=== PATIENT | male | born 1965 | race Caucasian/White ===

== ENCOUNTER 2016-06-27 20:38 | Emergency (ER) | payer OTHER ==
[2016-06-27 21:06] VITALS: BP 140/81; PULSE 85; RESP 20; TEMP 98.9
--- NOTE | 2016-06-27 21:49 | ED ---
Back Pain HPI - General Chief Complaint: Back Pain/Injury Stated Complaint: chronic lower back pain Time Seen by Provider: 06/27/16 21:33 Source: patient Limitations: no limitations - History of Present Illness Initial Comments: Patient is a 51-year-old male presenting to the emergency department with complaints of chronic low back pain. Patient states he has had chronic low back pain since 2001 and has been seen by pain specialist in the past, who is no longer available. Patient states he has insurance problems and is unable to see a pain specialist until he gets a referral from his primary care physician. Patient states he has an appointment to see his primary care physician next week. Patient complains of lower back pain currently rated 8 out of 10. Patient states his pain is exacerbated with walking. Patient states that he just moved into apartment where he has to walk 2 flights of stairs every day. Denies fevers, chills, nausea, vomiting, shortness of breath , chest pain, or abdominal pain. Denies numbness or tingling. Denies radiation. Denies urinary or fecal incontinence. Denies saddle anesthesia. Patient declines imaging at this point. MD Complaint: back pain Similar Symptoms Previously: Yes - Related Data Previous Rx's Medication Instructions Recorded Acetaminophen-Codeine 300-30mg 1 tab PO Q6H PRN #20 tablet 06/27/16 [Tylenol #3] Allergies Allergy/AdvReac Type Severity Reaction Status Date / Time gabapentin [From Neurontin] Allergy Unknown Verified 06/27/16 21:06 Review of Systems ROS Statement: Those systems with pertinent positive or pertinent negative responses have been documented in the HPI. ROS Other: All systems not noted in ROS Statement are negative. Past Medical History Past Medical History: Asthma, COPD Additional Past Medical History / Comment(s): back pain, heredity degenerative disc disorder History of Any Multi-Drug Resistant Organisms: None Reported Past Surgical History: Hernia Repair, Orthopedic Surgery Past Psychological History: ADD/ADHD, Anxiety, Bipolar Smoking Status: Current every day smoker Past Alcohol Use History: None Reported Past Drug Use History: None Reported General Exam Limitations: no limitations General appearance: alert, in no apparent distress Head exam: Present: atraumatic, normocephalic, normal inspection Eye exam: Present: normal appearance, PERRL, EOMI. Absent: scleral icterus, conjunctival injection, periorbital swelling ENT exam: Present: normal exam, mucous membranes moist Neck exam: Present: normal inspection, full ROM. Absent: tenderness, meningismus, lymphadenopathy Respiratory exam: Present: normal lung sounds bilaterally. Absent: respiratory distress, wheezes, rales, rhonchi, stridor Cardiovascular Exam: Present: regular rate, normal rhythm, normal heart sounds. Absent: systolic murmur, diastolic murmur, rubs, gallop, clicks GI/Abdominal exam: Present: soft, normal bowel sounds. Absent: distended, tenderness, guarding, rebound, rigid Extremities exam: Present: normal inspection, full ROM, normal capillary refill. Absent: tenderness, pedal edema, joint swelling, calf tenderness Back exam: Present: normal inspection, full ROM, vertebral tenderness. Absent: CVA tenderness (R), CVA tenderness (L), muscle spasm, paraspinal tenderness Expanded Back exam: Absent: saddle anesthesia Back exam: Negative Straight Leg Raising: Left, Right Neurological exam: Present: alert, oriented X3, CN II-XII intact, normal gait. Absent: motor sensory deficit, reflexes normal Psychiatric exam: Present: normal affect, normal mood Skin exam: Present: warm, dry, intact, normal color. Absent: rash Course Vital Signs 06/27/16 21:05 Temperature 98.9 F Pulse Rate 85 Respiratory 20 Rate Blood Pressure 140/81 O2 Sat by Pulse 98 Oximetry Medical Decision Making - Medical Decision Making Chronic lumbar back pain. Patient given prescription for Tylenol 3 and instructed to follow-up with primary care physician to establish a pain specialist. Patient agrees with plan of care. Return parameters and discharge instructions reviewed. Disposition Clinical Impression: Chronic low back pain without sciatica Disposition: HOME SELF-CARE Condition: Good Instructions: Chronic Back Pain (ED) Additional Instructions: Follow-up with primary care physician as directed. Please return to the emergency department if symptoms do not improve or get worse. Prescriptions: Acetaminophen-Codeine 300-30mg [Tylenol #3] 1 tab PO Q6H PRN #20 tablet PRN Reason: Pain Referrals: Isabella Herrera MD [Primary Care Provider] - 1-2 days Time of Disposition: 21:48
== END 2016-06-27 22:11 | disposition home or self-care (01) ==
LOC: EC 20:38
DX: G89.29 Other chronic pain (principal); M54.5 Low back pain; F17.200 Nicotine dependence, unspecified, uncomplicated
CPT/HCPCS: 99283

== ENCOUNTER 2016-07-24 23:00 | Emergency (ER) | payer OTHER ==
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
[2016-07-25 00:37] VITALS: BP 143/76; PULSE 90; RESP 20; TEMP 97
== END 2016-07-25 00:37 | disposition home or self-care (01) ==
LOC: EC 23:00
DX: S00.83XA Contusion of other part of head, initial encounter (principal); W22.03XA Walked into furniture, initial encounter; J32.9 Chronic sinusitis, unspecified; F17.200 Nicotine dependence, unspecified, uncomplicated; Z88.8 Allergy status to other drugs, medicaments and biological substances
CPT/HCPCS: 70486; 99283

== ENCOUNTER 2016-09-21 15:00 | Emergency (ER) | payer OTHER ==
[2016-09-21 15:16] VITALS: BP 134/60; PULSE 72; RESP 16; TEMP 98.8
--- NOTE | 2016-09-21 15:30 | ED ---
General Adult HPI - General Chief complaint: Back Pain/Injury Stated complaint: Back Pain Time Seen by Provider: 09/21/16 15:18 Source: patient, RN notes reviewed, old records reviewed Mode of arrival: ambulatory Limitations: no limitations - History of Present Illness Initial comments: Patient 51-year-old male with significant past history of chronic low back pain , who presents emergency room today with chief complaint of increased lower back pain after lifting a TV earlier today. Denies any significant injury at the time. States it has flared up since having increased pain in her lower back greater on the right side. Denies any lumbar radiculopathy. Denies any saddle anesthesia. Denies any bowel or bladder incontinence or retention. Patient denies any other complaints or associated symptoms. Patient denies any recent fever, chills, shortness of breath, chest pain, abdominal pain, nausea or vomiting, numbness or tingling, dysuria or hematuria, constipation or diarrhea, headaches or visual changes, or any other complaints. - Related Data Previous Rx's Medication Instructions Recorded Acetaminophen-Codeine 300-30mg 1 each PO Q6H PRN #20 tablet 09/21/16 [Tylenol #3] Cyclobenzaprine [Flexeril] 10 mg PO TID #20 tab 09/21/16 Allergies Allergy/AdvReac Type Severity Reaction Status Date / Time gabapentin [From Neurontin] Allergy Unknown Verified 09/21/16 15:16 Review of Systems ROS Statement: Those systems with pertinent positive or pertinent negative responses have been documented in the HPI. ROS Other: All systems not noted in ROS Statement are negative. Past Medical History Past Medical History: Asthma, COPD Additional Past Medical History / Comment(s): back pain, heredity degenerative disc disorder History of Any Multi-Drug Resistant Organisms: None Reported Past Surgical History: Hernia Repair, Orthopedic Surgery Past Psychological History: ADD/ADHD, Anxiety, Bipolar Smoking Status: Current every day smoker Past Alcohol Use History: None Reported Past Drug Use History: None Reported General Exam - General Exam Comments Initial Comments: General: The patient is awake and alert, in no distress, and does not appear acutely ill. Eye: Pupils are equal, round and reactive to light, extra-ocular movements are intact. No nystagmus. There is normal conjunctiva bilaterally. No signs of icterus. Ears, nose, mouth and throat: There are moist mucous membranes and no oral lesions. Neck: The neck is supple, there is no tenderness or JVD. Cardiovascular: There is a regular rate and rhythm. No murmur, rub or gallop is appreciated. Respiratory: Lungs are clear to auscultation, respirations are non-labored, breath sounds are equal. No wheezes, stridor, rales, or rhonchi Musculoskeletal: Normal ROM, no tenderness. Strength 5/5. Sensation intact. Pulses equal bilaterally 2+. Neurological: A&O x 3. CN II-XII intact, There are no obvious motor or sensory deficits. Coordination appears grossly intact. Speech is normal. Skin: Skin is warm and dry and no rashes or lesions are noted. Psychiatric: Cooperative, appropriate mood & affect, normal judgment. Limitations: no limitations Course Vital Signs 09/21/16 15:14 Temperature 98.8 F Pulse Rate 72 Respiratory 16 Rate Blood Pressure 134/60 O2 Sat by Pulse 98 Oximetry Medical Decision Making - Medical Decision Making [employer] automated prescription system check was performed showing patient has not received any recent narcotics. Will be given short prescription of Tylenol with codeine along with Flexeril for his symptoms. Advised follow-up the family doctor. Advised return for any other concerns. Disposition Clinical Impression: Acute exacerbation of chronic low back pain Disposition: HOME SELF-CARE Condition: Good Instructions: Chronic Back Pain (ED) Additional Instructions: Please use medication as discussed. Please follow-up with family doctor in the next 2 days of symptoms have not improved. Please return to emergency room if the symptoms increase or worsen or for any other concerns. Prescriptions: Acetaminophen-Codeine 300-30mg [Tylenol #3] 1 each PO Q6H PRN #20 tablet PRN Reason: Pain Cyclobenzaprine [Flexeril] 10 mg PO TID #20 tab Time of Disposition: 15:29
== END 2016-09-21 15:30 | disposition home or self-care (01) ==
LOC: EC 15:00
DX: M54.5 Low back pain (principal); G89.29 Other chronic pain; Z88.8 Allergy status to other drugs, medicaments and biological substances; F17.200 Nicotine dependence, unspecified, uncomplicated; X50.9XXA Other and unspecified overexertion or strenuous movements or postures, initial encounter; Y93.89 Activity, other specified
CPT/HCPCS: 99283

== ENCOUNTER 2016-10-26 15:41 | Emergency (ER) | payer OTHER ==
[2016-10-26 15:55] VITALS: BP 143/81; PULSE 108; RESP 18; TEMP 99
--- NOTE | 2016-10-26 16:14 | ED ---
Back Pain HPI - General Chief Complaint: Back Pain/Injury Stated Complaint: back pain Time Seen by Provider: 10/26/16 15:56 Source: patient, RN notes reviewed Limitations: no limitations - History of Present Illness Initial Comments: Patient is a 51-year-old male to the emergency room for evaluation of acute on chronic low back pain. Patient states he's had chronic low back pain since 1999. Patient denies any certain injury or trauma to his back. Patient states it just began bothering him many years ago and has not subsided since. Patient states he used to see Dr. Augustine for pain management. Patient states he used to take [place] and Valium for pain. 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 Patient states he is going to follow-up with the primary care provider in the next few weeks. Patient states he has not been taking anything for pain at home. Patient states ibuprofen gives him heartburn. Patient denies trying Tylenol. Patient states the pain is worse when he moves. Patient denies any numbness or tingling going down his legs. Patient denies saddle anesthesia. Patient denies urinary or fecal incontinence. Patient denies recent fall or trauma to his back. Patient just states his back is been bothering him more over the past 2 days. - Related Data Previous Rx's Medication Instructions Recorded Acetaminophen-Codeine 300-30mg 1 each PO Q6H PRN #20 tablet 09/21/16 [Tylenol #3] Cyclobenzaprine [Flexeril] 10 mg PO TID #20 tab 09/21/16 Acetaminophen with Codeine 1 tab PO Q4H PRN #12 tab 10/26/16 [Tylenol w/codeine #3] Allergies Allergy/AdvReac Type Severity Reaction Status Date / Time gabapentin [From Neurontin] Allergy Unknown Verified 10/26/16 15:55 Review of Systems ROS Statement: Those systems with pertinent positive or pertinent negative responses have been documented in the HPI. ROS Other: All systems not noted in ROS Statement are negative. Past Medical History Past Medical History: Asthma, COPD Additional Past Medical History / Comment(s): back pain, heredity degenerative disc disorder History of Any Multi-Drug Resistant Organisms: None Reported Past Surgical History: Hernia Repair, Orthopedic Surgery Past Psychological History: ADD/ADHD, Anxiety, Bipolar Smoking Status: Current every day smoker Past Alcohol Use History: None Reported Past Drug Use History: None Reported General Exam - General Exam Comments Initial Comments: Sitting on exam bed, no acute distress. Limitations: no limitations General appearance: alert, in no apparent distress Head exam: Present: atraumatic, normocephalic, normal inspection Eye exam: Present: normal appearance ENT exam: Present: normal exam Neck exam: Present: normal inspection Respiratory exam: Absent: respiratory distress Extremities exam: Present: normal inspection, normal capillary refill Back exam: Present: normal inspection, full ROM, paraspinal tenderness ( bilateral lumbosacral spine tenderness) Neurological exam: Present: alert, oriented X3, CN II-XII intact, normal gait Psychiatric exam: Present: normal affect, normal mood Skin exam: Present: warm, dry, intact, normal color. Absent: rash Course Vital Signs 10/26/16 15:54 Temperature 99.0 F Pulse Rate 108 H Respiratory 18 Rate Blood Pressure 143/81 O2 Sat by Pulse 95 Oximetry Medical Decision Making - Medical Decision Making Patient is a 51-year-old male presents emergency room for evaluation of acute on chronic low back pain. Patient denies any recent fall or trauma. Will send patient home with Tylenol 3 and advised to follow-up with primary care provider. Patient states he understands everything that was discussed with him. Return parameters discussed. Disposition Clinical Impression: Acute exacerbation of chronic low back pain Disposition: HOME SELF-CARE Condition: Good Instructions: Chronic Back Pain (ED) Additional Instructions: Take medications as needed. Please follow-up with primary care provider for further evaluation/pain management. If any new symptom arises or symptoms worsen , return to ER as soon as possible. Prescriptions: Acetaminophen with Codeine [Tylenol w/codeine #3] 1 tab PO Q4H PRN #12 tab PRN Reason: Pain Referrals: None,Stated [Primary Care Provider] - 1-2 days Time of Disposition: 16:12
== END 2016-10-26 16:18 | disposition home or self-care (01) ==
LOC: EC 15:41
DX: G89.29 Other chronic pain (principal); M54.5 Low back pain; F17.200 Nicotine dependence, unspecified, uncomplicated; Z88.8 Allergy status to other drugs, medicaments and biological substances
CPT/HCPCS: 99283

== ENCOUNTER → 2016-12-11 | Outpatient (CLI) | payer BC ==
--- NOTE | 2016-12-11 10:29 | XR ---
EXAMINATION TYPE: XR lumbar spine 2 or 3V , 3 VIEWS DATE OF EXAM ORDERED: 12/11/2016 HISTORY: M51.36 Intervertebral disc degeneration, lumbar region. COMPARISON: None. FINDINGS: Vertebral body height and alignment are maintained. There is no spondylolysis or spondylol isthesis. The disc spaces are maintained. The pedicles are intact. IMPRESSION: NORMAL LUMBAR SPINE.
--- NOTE | 2016-12-11 10:29 | XR ---
EXAMINATION TYPE: XR chest 2V DATE OF EXAM: 12/11/2016 HISTORY: F17.200 Nicotine dependence. REFERENCE: Previous study dated 11/04/2015. FINDINGS: The lungs are clear. Pleural space are clear. The heart is not enlarged. IMPRESSION: NORMAL CHEST.
== END | disposition home or self-care (01) ==
LOC: RADXRMAIN 10:04
PROVIDERS: ATTEND Family Medicine
DX: M51.36 Other intervertebral disc degeneration, lumbar region (principal); F17.200 Nicotine dependence, unspecified, uncomplicated
CPT/HCPCS: 71020; 72100

== ENCOUNTER → 2016-12-26 | Outpatient (CLI) | payer BC ==
--- NOTE | 2016-12-27 09:40 | MR ---
EXAMINATION TYPE: MR lumbar spine wo con DATE OF EXAM: 12/26/2016 2:58 PM COMPARISON: NONE HISTORY: Lower chronic back pain x 10 years Multiplanar, MultiSpin echo imaging of the lumbar spine was performed. L1-L2: Normal disc appearance without desiccation. No herniation, protrusion or disc bulging. No ca nal stenosis is present. Foramina are patent bilaterally. L2-L3: Normal disc appearance without desiccation. No herniation, protrusion or disc bulging. No ca nal stenosis is present. Foramina are patent bilaterally. L3-L4: Normal disc appearance without desiccation. No herniation, protrusion or disc bulging. No ca nal stenosis is present. Foramina are patent bilaterally. L4-L5: Mild Disc desiccation. Posterocentral disc protrusion with mild effacement ventral thecal sac. No evidence for central stenosis. Mild bilateral foraminal encroachment. L5-S1: Mild disc desiccation. Right paracentral disc bulge with annular tear. No evidence for central stenosis or alan herniation. Facet joint arthropathy without significant foraminal encroachment. Lumbar segments are intact. No paraspinal masses are identified. Conus medullaris has a normal appe arance. IMPRESSION: 1. Mild disc desiccation at L4-5 and L5-S1. 2. Posterocentral disc protrusion at L4-5 with mild effacement ventral thecal sac. 3. Right paracentral disc bulge and annular tear at L5-S1.
== END | disposition home or self-care (01) ==
LOC: RADMRIMAIN 13:59
PROVIDERS: ATTEND Physician Assistant
DX: M51.26 Other intervertebral disc displacement, lumbar region (principal); M51.37 Other intervertebral disc degeneration, lumbosacral region; S34.105A Unspecified injury to L5 level of lumbar spinal cord, initial encounter
CPT/HCPCS: 72148

== ENCOUNTER 2018-09-01 17:33 | Emergency (ER) | payer BC ==
[2018-09-01 17:48] VITALS: RESP 18
[2018-09-01] MEDS ORDERED: ALBUTEROL NEBULIZED 2.5 MG/3 ML INHALATION STA (17:49)
[2018-09-01] MEDS ORDERED: SODIUM CHLORIDE 0.9% 1,000 ML IV STA ×2 (17:49)
[2018-09-01] MEDS ORDERED: IPRATROPIUM 0.5 MG/2.5 ML NEBU INHALATION STA (17:49)
[2018-09-01] MEDS ORDERED: methylPREDNISolone SOD SUCCI 125 MG/2 ML VIAL IV STA (17:49)
--- NOTE | 2018-09-01 17:53 | ED ---
URI HPI - General Chief Complaint: Upper Respiratory Infection Stated Complaint: Poss flu Time Seen by Provider: 09/01/18 17:46 Source: patient, RN notes reviewed, old records reviewed Mode of arrival: ambulatory Limitations: no limitations - History of Present Illness Initial Comments: This is a 53-year-old male the ER for evaluation. They presents for evaluation regarding cough congestion shortness of breath. Occasional rib pain with cough. History of asthma history of smoking. No fevers no travel history no sick contacts. Symptoms are not for 2 weeks, persistent. No prior hospitalizations for breathing issues MD Complaint: fever, cough -: week(s) Severity: moderate Severity scale (1-10): 5 Quality: aching Consistency: constant Improves With: nothing Worsens With: nothing Associated Symptoms: fever, chills, chest pain, shortness of breath Treatments Prior to Arrival: none - Related Data Home Medications Medication Instructions Recorded Confirmed Atorvastatin [Lipitor] 40 mg PO DAILY 09/01/18 09/01/18 HYDROcodone/APAP 10-325MG [[place] 1 tab PO QID PRN 09/01/18 09/01/18 10-325] QUEtiapine [SEROquel] 50 mg PO BID 09/01/18 09/01/18 Venlafaxine HCl ER [Effexor Xr] 75 mg PO DAILY 09/01/18 09/01/18 Previous Rx's Medication Instructions Recorded Albuterol Sulfate [Proair Hfa] 1 - 2 puff INHALATION Q4H PRN #1 09/01/18 inhaler Azithromycin [Zithromax Z-pack] 0 mg PO DIRECTED #1 pack 09/01/18 Naproxen [Naprosyn] 500 mg PO Q12HR PRN #30 tab 09/01/18 predniSONE 50 mg PO DAILY #5 tab 09/01/18 Allergies Allergy/AdvReac Type Severity Reaction Status Date / Time gabapentin [From Neurontin] Allergy Unknown Verified 09/01/18 18:18 Review of Systems ROS Statement: Those systems with pertinent positive or pertinent negative responses have been documented in the HPI. ROS Other: All systems not noted in ROS Statement are negative. Past Medical History Past Medical History: Asthma, COPD Additional Past Medical History / Comment(s): back pain, heredity degenerative disc disorder History of Any Multi-Drug Resistant Organisms: None Reported Past Surgical History: Hernia Repair, Orthopedic Surgery Past Psychological History: ADD/ADHD, Anxiety, Bipolar Smoking Status: Current every day smoker Past Alcohol Use History: None Reported Past Drug Use History: None Reported General Exam Limitations: no limitations General appearance: alert, in no apparent distress Head exam: Present: atraumatic, normocephalic, normal inspection Eye exam: Present: normal appearance, PERRL, EOMI. Absent: scleral icterus, conjunctival injection, periorbital swelling ENT exam: Present: normal exam, mucous membranes moist Neck exam: Present: normal inspection. Absent: tenderness, meningismus, lymphadenopathy Respiratory exam: Present: wheezes. Absent: respiratory distress, rales, rhonchi, stridor Cardiovascular Exam: Present: regular rate, normal rhythm, normal heart sounds. Absent: systolic murmur, diastolic murmur, rubs, gallop, clicks GI/Abdominal exam: Present: soft, normal bowel sounds. Absent: distended, tenderness, guarding, rebound, rigid Extremities exam: Present: normal inspection, full ROM, normal capillary refill. Absent: tenderness, pedal edema, joint swelling, calf tenderness Back exam: Present: normal inspection Neurological exam: Present: alert, oriented X3, CN II-XII intact Psychiatric exam: Present: normal affect, normal mood Skin exam: Present: warm, dry, intact, normal color. Absent: rash Course Vital Signs 09/01/18 09/01/18 09/01/18 17:35 17:43 18:51 Temperature 98.2 F Pulse Rate 78 77 Respiratory 22 18 18 Rate Blood Pressure 129/77 132/85 O2 Sat by Pulse 100 99 Oximetry - Reevaluation(s) Reevaluation #1: 09/01/18 19:00 Medical records reviewed Reevaluation #2: 09/01/18 19:00 Patient symptoms are significantly improved Medical Decision Making - Medical Decision Making 89 male the ER for evaluation positive shortness breath cough and congestion positive pneumonia. Patient be treated as an outpatient for pneumonia is in no acute distress - Radiology Data Radiology results: report reviewed (Chest x-rays positive for pneumonia), image reviewed Disposition Clinical Impression: Community acquired bacterial pneumonia Disposition: HOME SELF-CARE Condition: Good Instructions (If sedation given, give patient instructions): Community Acquired Pneumonia (ED) Prescriptions: Naproxen [Naprosyn] 500 mg PO Q12HR PRN #30 tab PRN Reason: Pain predniSONE 50 mg PO DAILY #5 tab Albuterol Sulfate [Proair Hfa] 1 - 2 puff INHALATION Q4H PRN #1 inhaler PRN Reason: Shortness Of Breath Azithromycin [Zithromax Z-pack] 0 mg PO DIRECTED #1 pack Is patient prescribed a controlled substance at d/c from ED?: No Referrals: Zeus Awad MD [Primary Care Provider] - 1-2 days
[2018-09-01] MEDS ORDERED: KETOROLAC 60 MG/2 ML VIAL IM STA (17:56)
[2018-09-01] MEDS ORDERED: predniSONE 20 MG TAB PO STA (17:56)
--- NOTE | 2018-09-01 18:13 | XR ---
EXAMINATION TYPE: XR chest 2V DATE OF EXAM: 09/01/2018 COMPARISON: 12/11/2016 HISTORY: Cough and congestion TECHNIQUE: Frontal and lateral views of the chest are obtained. FINDINGS: Heart and mediastinum are normal. There is a small area of density in the left lower lobe. The other lung chauhan are clear. There are no hilar masses. There is no pleural effusion. Bony thora x is intact. IMPRESSION: There is a new minimal 3 cm area of infiltrate left lower lobe compared to old exam.
[2018-09-01] MEDS ORDERED: AZITHROMYCIN 500 MG TAB PO STA (18:55)
[2018-09-01] MEDS ORDERED: cefTRIAXone 250 MG VIAL IM STA (18:55)
[2018-09-01 19:52] VITALS: BP 123/71; PULSE 71; TEMP 98.1
== END 2018-09-01 19:50 | disposition home or self-care (01) ==
LOC: EC 17:33
DX: J15.9 Unspecified bacterial pneumonia (principal); F41.9 Anxiety disorder, unspecified; F31.9 Bipolar disorder, unspecified; F17.200 Nicotine dependence, unspecified, uncomplicated; Z87.09 Personal history of other diseases of the respiratory system; Z79.899 Other long term (current) drug therapy; Z88.8 Allergy status to other drugs, medicaments and biological substances; Z53.8 Procedure and treatment not carried out for other reasons
CPT/HCPCS: 94640; 71046; 99285; 96372 ×2; J0696; J1885; J7512

== ENCOUNTER → 2018-10-19 | Outpatient (CLI) | payer BC ==
--- NOTE | 2018-10-19 11:41 | XR ---
EXAMINATION TYPE: XR chest 2V DATE OF EXAM: 10/19/2018 COMPARISON: Chest x-ray September 01, 2018 HISTORY: J 18.9 per order. Feeling ill or week with some fever since August pneumonia. TECHNIQUE: Frontal and lateral views of the chest are obtained. FINDINGS: There is no new suspicious focal air space opacity, pleural effusion, or pneumothorax seen on current study. The cardiac silhouette size remains within normal limits. The osseous structure s are intact. IMPRESSION: No new acute pulmonary process.
== END | disposition home or self-care (01) ==
LOC: RADXRMAIN 11:21
PROVIDERS: ATTEND Family Medicine
DX: J18.9 Pneumonia, unspecified organism (principal)
CPT/HCPCS: 71046

== ENCOUNTER 2019-03-15 17:23 | Observation (INO) | payer BC ==
[2019-03-15] MEDS ORDERED: NITROGLYCERIN SL TABS 0.4 MG TAB SUBLINGUAL STA ×3 (17:43)
[2019-03-15] MEDS ORDERED: ASPIRIN 81 MG PO STA (17:43)
--- NOTE | 2019-03-15 17:46 | ED ---
General Adult HPI - General Chief complaint: Shortness of Breath Stated complaint: chest pain, SOB Time Seen by Provider: 03/15/19 17:33 Source: patient, RN notes reviewed Mode of arrival: ambulatory Limitations: no limitations - History of Present Illness Initial comments: Patient is a pleasant 54-year-old male presenting to the emergency Department wi th complaints of chest discomfort. Onset of symptoms was this morning. Symptoms have been steady, slightly worsening throughout the day. Discomfort is 7/10. Discomfort feels a pressure in the midsternal region. Patient does feel short of breath. Patient has been coughing up brown sputum for the past one week. Symptoms are similar to previous pneumonia. No leg pain or leg swelling. Patient denies having any fevers. - Related Data Home Medications Medication Instructions Recorded Confirmed Atorvastatin [Lipitor] 40 mg PO DAILY 09/01/18 03/15/19 HYDROcodone/APAP 10-325MG [[place] 1 tab PO QID 09/01/18 03/15/19 10-325] QUEtiapine [SEROquel] 50 mg PO BID 09/01/18 03/15/19 Glycopyrrolate/Formoterol Fum 2 puff INHALATION RT-BID 03/15/19 03/15/19 [Bevespi Aerosphere Inhaler] Allergies Allergy/AdvReac Type Severity Reaction Status Date / Time gabapentin [From Neurontin] Allergy Unknown Verified 03/15/19 18:25 Review of Systems ROS Statement: Those systems with pertinent positive or pertinent negative responses have been documented in the HPI. ROS Other: All systems not noted in ROS Statement are negative. Constitutional: Denies: fever, chills Eyes: Denies: eye pain ENT: Denies: ear pain Respiratory: Reports: cough, dyspnea Cardiovascular: Reports: chest pain Endocrine: Denies: fatigue Gastrointestinal: Denies: abdominal pain Genitourinary: Denies: urgency Musculoskeletal: Denies: back pain Skin: Denies: rash Neurological: Denies: weakness Past Medical History Past Medical History: Asthma, COPD Additional Past Medical History / Comment(s): back pain, heredity degenerative disc disorder History of Any Multi-Drug Resistant Organisms: None Reported Past Surgical History: Hernia Repair, Orthopedic Surgery Past Psychological History: ADD/ADHD, Anxiety, Bipolar Smoking Status: Current every day smoker Past Alcohol Use History: None Reported Past Drug Use History: None Reported General Exam Limitations: no limitations General appearance: alert, in no apparent distress Head exam: Present: normocephalic Eye exam: Present: normal appearance, PERRL ENT exam: Present: normal oropharynx Neck exam: Present: normal inspection Respiratory exam: Present: normal lung sounds bilaterally Cardiovascular Exam: Present: regular rate, normal rhythm Expanded Peripheral pulses: 2+: Radial (R), Radial (L), Posterior Tibialis (R), Posterior Tibialis (L) GI/Abdominal exam: Present: soft. Absent: tenderness Extremities exam: Present: normal inspection. Absent: pedal edema, calf tenderness Back exam: Present: normal inspection Neurological exam: Present: alert Psychiatric exam: Present: normal affect, normal mood Skin exam: Present: normal color Course Vital Signs 03/15/19 03/15/19 03/15/19 17:26 17:52 17:55 Temperature 97.7 F Pulse Rate 96 91 Respiratory 20 22 18 Rate Blood Pressure 137/86 135/83 O2 Sat by Pulse 99 99 Oximetry 03/15/19 18:02 Temperature Pulse Rate 109 H Respiratory 20 Rate Blood Pressure 117/85 O2 Sat by Pulse 98 Oximetry EKG Findings - EKG Comments: EKG Findings:: Normal sinus rhythm 77. OK 118. QRS 100. QT 388. QTC 439. Normal axis. Right ventricular conduction delay. Nonspecific ST-T. Medical Decision Making - Medical Decision Making Patient reevaluated and resting comfortably in bed. No improvement with nitro however discomfort is tolerable with morphine. Patient and family updated on results and plan. Case was discussed in detail with Dr. Awad, who will admit his patient. - Lab Data Result diagrams: 03/15/19 17:50 03/15/19 17:50 Lab Results 03/15/19 03/15/19 03/15/19 Range/Units 17:50 17:50 17:50 WBC 10.8 H (3.8-10.6) k/uL RBC 4.28 L (4.30-5.90) m/uL Hgb 13.2 (13.0-17.5) gm/dL Hct 41.5 (39.0-53.0) % MCV 97.0 (80.0-100.0) fL MCH 30.8 (25.0-35.0) pg MCHC 31.7 (31.0-37.0) g/dL RDW 13.9 (11.5-15.5) % Plt Count 275 (150-450) k/uL Neutrophils % 71 % Lymphocytes % 22 % Monocytes % 4 % Eosinophils % 1 % Basophils % 1 % Neutrophils # 7.6 (1.3-7.7) k/uL Lymphocytes # 2.4 (1.0-4.8) k/uL Monocytes # 0.4 (0-1.0) k/uL Eosinophils # 0.1 (0-0.7) k/uL Basophils # 0.1 (0-0.2) k/uL PT 9.9 (9.0-12.0) sec INR 0.9 (<1.2) APTT 22.4 (22.0-30.0) sec D-Dimer 0.39 (<0.60) mg/L FEU Sodium 145 (137-145) mmol/L Potassium 4.1 (3.5-5.1) mmol/L Chloride 111 H (98-107) mmol/L Carbon Dioxide 25 (22-30) mmol/L Anion Gap 9 mmol/L BUN 14 (9-20) mg/dL Creatinine 0.78 (0.66-1.25) mg/dL Est GFR (CKD-EPI)AfAm >90 (>60 ml/min/1.73 sqM) Est GFR (CKD-EPI)NonAf >90 (>60 ml/min/1.73 sqM) Glucose 101 H (74-99) mg/dL Plasma Lactic Acid Alexis (0.7-2.0) mmol/L Calcium 9.8 (8.4-10.2) mg/dL Magnesium 1.9 (1.6-2.3) mg/dL Total Bilirubin 0.2 (0.2-1.3) mg/dL AST 31 (17-59) U/L ALT 24 (21-72) U/L Alkaline Phosphatase 88 (38-126) U/L Troponin I (0.000-0.034) ng/mL NT-Pro-B Natriuret Pep pg/mL Total Protein 7.8 (6.3-8.2) g/dL Albumin 4.3 (3.5-5.0) g/dL 03/15/19 03/15/19 03/15/19 Range/Units 17:50 17:50 17:50 WBC (3.8-10.6) k/uL RBC (4.30-5.90) m/uL Hgb (13.0-17.5) gm/dL Hct (39.0-53.0) % MCV (80.0-100.0) fL MCH (25.0-35.0) pg MCHC (31.0-37.0) g/dL RDW (11.5-15.5) % Plt Count (150-450) k/uL Neutrophils % % Lymphocytes % % Monocytes % % Eosinophils % % Basophils % % Neutrophils # (1.3-7.7) k/uL Lymphocytes # (1.0-4.8) k/uL Monocytes # (0-1.0) k/uL Eosinophils # (0-0.7) k/uL Basophils # (0-0.2) k/uL PT (9.0-12.0) sec INR (<1.2) APTT (22.0-30.0) sec D-Dimer (<0.60) mg/L FEU Sodium (137-145) mmol/L Potassium (3.5-5.1) mmol/L Chloride (98-107) mmol/L Carbon Dioxide (22-30) mmol/L Anion Gap mmol/L BUN (9-20) mg/dL Creatinine (0.66-1.25) mg/dL Est GFR (CKD-EPI)AfAm (>60 ml/min/1.73 sqM) Est GFR (CKD-EPI)NonAf (>60 ml/min/1.73 sqM) Glucose (74-99) mg/dL Plasma Lactic Acid [place]ex[place] 2.2 H* (0.7-2.0) mmol/L Calcium (8.4-10.2) mg/dL Magnesium (1.6-2.3) mg/dL Total Bilirubin (0.2-1.3) mg/dL AST (17-59) U/L ALT (21-72) U/L Alkaline Phosphatase (38-126) U/L Troponin I <0.012 (0.000-0.034) ng/mL NT-Pro-B Natriuret Pep 58 pg/mL Total Protein (6.3-8.2) g/dL Albumin (3.5-5.0) g/dL - Radiology Data Radiology results: image reviewed (Chest x-ray shows no acute process) Disposition Clinical Impression: Chest pain Disposition: ADMITTED IP TO THIS HOSP Is patient prescribed a controlled substance at d/c from ED?: No Referrals: Zeus Awad MD [Primary Care Provider] - 1-2 days Decision Time: 20:52
[2019-03-15] MEDS: SODIUM CHLORIDE 0.9% 1,000 ML IV STA ×2 (17:54→22:24)
[2019-03-15 18:11] LABS: Basophils # (A) 0.1 k/uL (0-0.2); Basophils % (A) 1 %; Eosinophils # (A) 0.1 k/uL (0-0.7); Eosinophils % (A) 1 %; HCT 41.5 % (39.0-53.0); HGB 13.2 gm/dL (13.0-17.5); Lymphocytes # (A) 2.4 k/uL (1.0-4.8); Lymphocytes % (A) 22 %; MCH 30.8 pg (25.0-35.0); MCHC 31.7 g/dL (31.0-37.0); Monocytes # (A) 0.4 k/uL (0-1.0); Monocytes % (A) 4 %; Neutrophils # (A) 7.6 k/uL (1.3-7.7); Neutrophils % (A) 71 %; Platelet Count 275 k/uL (150-450); RBC 4.28 m/uL (4.30-5.90); RDW 13.9 % (11.5-15.5); WBC 10.8 k/uL (3.8-10.6)
[2019-03-15 18:20] LABS: ALT 24 U/L (21-72); AST 31 U/L (17-59); African American GFR (CKD) >90 (>60 ml/min/1.73 sqM); Albumin 4.3 g/dL (3.5-5.0); Alkaline Phosphatase 88 U/L (38-126); Anion Gap 9 mmol/L; Blood Urea Nitrogen 14 mg/dL (9-20); Calcium 9.8 mg/dL (8.4-10.2); Carbon Dioxide 25 mmol/L (22-30); Chloride 111 mmol/L (98-107); Glucose 101 mg/dL (74-99); Magnesium 1.9 mg/dL (1.6-2.3); Non-African American GFR(CKD) >90 (>60 ml/min/1.73 sqM); Potassium 4.1 mmol/L (3.5-5.1); Sodium 145 mmol/L (137-145); Total Bilirubin 0.2 mg/dL (0.2-1.3); Total Protein 7.8 g/dL (6.3-8.2)
[2019-03-15 18:31] LABS: D-Dimer 0.39 mg/L FEU (<0.60); INR 0.9 (<1.2); Partial Thromboplastin Time 22.4 sec (22.0-30.0); Prothrombin Time 9.9 sec (9.0-12.0)
--- NOTE | 2019-03-15 18:40 | XR ---
EXAMINATION TYPE: XR chest 2V DATE OF EXAM: 03/15/2019 COMPARISON: Chest x-ray October 19, 2018. HISTORY: Chest pain. TECHNIQUE: Frontal and lateral views of the chest are obtained. FINDINGS: Overlying EKG leads are seen. There is some chronic parenchymal change without suspicious new focal air space opacity, pleural effusion, or pneumothorax seen. The cardiac silhouette size is within normal limits. The osseous structures are intact. IMPRESSION: No acute cardiopulmonary process. No significant change from prior.
[2019-03-15] MEDS ORDERED: MORPHINE SULFATE 4 MG/ML SYRINGE IVP STA (19:34)
[2019-03-15] MEDS ORDERED: NITROGLYCERIN SL TABS 0.4 MG TAB SUBLINGUAL PRN (20:52)
[2019-03-15 22:32] VITALS: RESP 18
[2019-03-15] MEDS ORDERED: QUEtiapine 50 MG TAB PO SCH (23:00)
[2019-03-15] MEDS: HYDROcodone/APAP 10-325MG 1 EACH TAB PO SCH (23:15)
[2019-03-15] MEDS: QUEtiapine 100 MG TAB PO SCH (23:15)
[2019-03-15] MEDS: NITROGLYCERIN OINT 1 INCH/GM PACKET TOPICAL SCH (23:16)
[2019-03-16] MEDS: NITROGLYCERIN OINT 1 INCH/GM PACKET TOPICAL SCH (05:01)
[2019-03-16 06:27] LABS: Cholesterol 226 mg/dL (<200); HDL Cholesterol 37 mg/dL (40-60); LDL Cholesterol,Calculated 121 mg/dL (0-99); Triglycerides 342 mg/dL (<150)
[2019-03-16 07:32] VITALS: TEMP 97.9
[2019-03-16] MEDS ORDERED: FORMOTEROL FUMARATE 20 MCG/2 ML NEBU INHALATION SCH (08:00)
[2019-03-16] MEDS: IPRATROPIUM 0.5 MG/2.5 ML NEBU INHALATION SCH ×3 (08:12→15:33)
[2019-03-16] MEDS ORDERED: ASPIRIN 325 MG TAB PO SCH (09:00)
[2019-03-16] MEDS ORDERED: ATORVASTATIN 40 MG TAB PO SCH (09:00)
--- NOTE | 2019-03-16 10:16 | CT ---
EXAMINATION TYPE: CT chest wo con DATE OF EXAM: 03/16/2019 COMPARISON: Radiograph 03/15/2019 HISTORY: 54-year-old male Chest pain and SOB TECHNIQUE: Contiguous axial scanning of the chest without IV contrast. Coronal and sagittal reconstru ctions performed. CT DLP: 424.6 mGycm Automated exposure control for dose reduction was used. FINDINGS: Heart normal size without pericardial effusion. Aorta normal caliber with conventional branching anatomy. Scattered nonenlarged mediastinal lymph nodes are present measuring up to 7 mm in the right tracheobr onchial angle. Evaluation of the lungs shows a tiny calcified granuloma posterior right mid lung. Focal irregular density measuring 5 mm just adjacent posterior right mid lung can be reassessed in 6 months. A couple scattered emphysematous cysts. No consolidation or pleural effusion. Small hiatal hernia. Visualized upper abdomen shows a hilar splenule. Bones: Superior endplate deformity of T8 has a chronic appearance. No retropulsion into the spinal ca nal. IMPRESSION: 1. MINIMAL SCATTERED EMPHYSEMATOUS CHANGE. 2. A 5 MM FOCAL IRREGULAR DENSITY POSTERIOR RIGHT MIDLUNG COULD REPRESENT SOME SCARRING. SIX-MONTH FO LLOW-UP RECOMMENDED TO EXCLUDE AN EARLY NODULE. 3. SMALL HILAR HERNIA. 4. MILD SUPERIOR ENDPLATE DEFORMITY OF T8 WAS PRESENT ON 09/01/2018 BUT IS NEW FROM 12/11/2016.
--- NOTE | 2019-03-16 10:37 | P.HPIM ---
History of Present Illness 54-year-old male presented to the emergency room with complaints of chest pressure. Patient's had a cough with yellow sputum for 1 week. Patient states the chest pressure was nonradiating midsternal patient states that he felt warm and sweaty. Patient has a history of asthma COPD bipolar patient is a smoker 8 cigarettes a day. Patient is degenerative disc disease with opioid dependence. Noted to have hyperlipidemia Review of Systems Constitutional: Reports sweats Cardiovascular: Reports chest pain Respiratory: Reports cough with sputum, Reports dyspnea Past Medical History Past Medical History: Asthma, COPD Additional Past Medical History / Comment(s): back pain, heredity degenerative disc disorder History of Any Multi-Drug Resistant Organisms: None Reported Past Surgical History: Hernia Repair, Orthopedic Surgery Past Anesthesia/Blood Transfusion Reactions: No Reported Reaction Past Psychological History: ADD/ADHD, Anxiety, Bipolar Smoking Status: Current every day smoker Past Alcohol Use History: None Reported Past Drug Use History: None Reported - Past Family History Mother Family Medical History: Coronary Artery Disease (CAD), Myocardial Infarction ([place]), Pneumonia Father Family Medical History: Pneumonia Medications and Allergies Home Medications Medication Instructions Recorded Confirmed Type Atorvastatin [Lipitor] 40 mg PO DAILY 09/01/18 03/15/19 History HYDROcodone/APAP 10-325MG [[place] 1 tab PO QID 09/01/18 03/15/19 History 10-325] QUEtiapine [SEROquel] 50 mg PO BID 09/01/18 03/15/19 History Glycopyrrolate/Formoterol Fum 2 puff INHALATION RT-BID 03/15/19 03/15/19 History [Bevespi Aerosphere Inhaler] Allergies Allergy/AdvReac Type Severity Reaction Status Date / Time gabapentin [From Neurontin] Allergy Unknown Verified 03/15/19 18:25 Physical Exam Vitals: Vital Signs Temp Pulse Pulse Resp BP BP BP 03/16/19 08:33 76 03/16/19 08:22 72 03/16/19 08:21 72 03/16/19 08:12 72 03/16/19 07:10 97.9 F 67 18 124/81 03/16/19 04:00 98.0 F 63 18 124/80 03/15/19 22:55 64 18 03/15/19 22:31 98.4 F 64 18 136/88 03/15/19 20:55 75 20 118/87 03/15/19 18:02 109 H 20 117/85 03/15/19 17:55 91 18 135/83 03/15/19 17:52 22 03/15/19 17:26 97.7 F 96 20 137/86 Pulse Ox 03/16/19 08:33 03/16/19 08:22 03/16/19 08:21 03/16/19 08:12 03/16/19 07:10 95 03/16/19 04:00 97 03/15/19 22:55 03/15/19 22:31 98 03/15/19 20:55 97 03/15/19 18:02 98 03/15/19 17:55 99 03/15/19 17:52 03/15/19 17:26 99 Intake and Output 03/15/19 03/16/19 03/16/19 22:59 06:59 14:59 Intake Total 522 Balance 522 Intake: Amount of Fluid Infused ( 300 ml) Oral 222 Other: # Voids 1 Weight 86.183 kg - Constitutional General appearance: mild distress - EENT Eyes: PERRLA Ears: bilateral: normal - Neck Neck: normal ROM - Respiratory Respiratory: negative: rhonchi, wheezing - Cardiovascular Rhythm: regular - Gastrointestinal General gastrointestinal: normal bowel sounds, soft - Integumentary Integumentary: normal - Neurologic Neurologic: CNII-XII intact - Musculoskeletal Musculoskeletal: gait normal - Psychiatric Psychiatric: A&O x's 3, appropriate affect, intact judgment & insight Results CBC & Chem 7: 03/15/19 17:50 03/15/19 17:50 Labs: Abnormal Lab Results - Last 24 Hours (Table) 03/15/19 03/15/19 03/15/19 Range/Units 17:50 17:50 17:50 WBC 10.8 H (3.8-10.6) k/uL RBC 4.28 L (4.30-5.90) m/uL Chloride 111 H (98-107) mmol/L Glucose 101 H (74-99) mg/dL Plasma Lactic Acid Alexis 2.2 H* (0.7-2.0) mmol/L Triglycerides (<150) mg/dL Cholesterol (<200) mg/dL LDL Cholesterol, Calc (0-99) mg/dL HDL Cholesterol (40-60) mg/dL 03/16/19 Range/Units 05:42 WBC (3.8-10.6) k/uL RBC (4.30-5.90) m/uL Chloride (98-107) mmol/L Glucose (74-99) mg/dL Plasma Lactic Acid Alexis (0.7-2.0) mmol/L Triglycerides 342 H (<150) mg/dL Cholesterol 226 H (<200) mg/dL LDL Cholesterol, Calc 121 H (0-99) mg/dL HDL Cholesterol 37 L (40-60) mg/dL Abdominal x-ray: report reviewed CT scan - chest: report reviewed Thrombosis Risk Factor Assmnt - Choose All That Apply Any of the Below Risk Factors Present?: Yes Each Factor Represents 1 point: Acute [place], Age 41-60 years, Obesity (BMI >25) Other Risk Factors: No Other congenital or acquired thrombophilia - If yes, enter type in comment: No Thrombosis Risk Factor Assessment Total Risk Factor Score: 3 Thrombosis Risk Factor Assessment Level: Moderate Risk Assessment and Plan Plan: Assessment Atypical chest pain troponins negative 3 Purulent tracheobronchitis History of asthma COPD Bipolar smoker Degenerative disc disease with opioid dependence Hyperlipidemia Plan Cardiology consultation awaiting results from echo and recommendations for discharge In office will make arrangements for him to follow-up with pulmonology regarding pulmonary nodules
--- NOTE | 2019-03-16 11:01 | P.CRDCN ---
History of Present Illness History of present illness: This is a pleasant 54-year-old male past medical history significant for asthma, COPD, bipolar, anxiety, ADHD and chronic nicotine dependence. He denies prior history of coronary artery disease and does not follow with a field advisor for any reason. We have asked him in consultation secondary to chest discomfort. He states the proximal male one month ago he was diagnosed with pneumonia and was on a course of antibiotics. His symptoms did improve and he has been feeling fine up until about a week ago. Approximately one week ago he started coughing with yellow/brown sputum, intermittent episodes of feeling warm and flushed all over and then yesterday he started feeling a pressure sensation in the middle of the chest when he would take in a deep breath or cough. He has had some mild shortness of breath and had been doing breathing treatments at home however was not achieving any relief of his symptoms. He is seen and examined sitting up in bed in no acute distress. He continues to have pleuritic type chest discomfort. He denies dizziness, palpitations, nausea, vomiting or syncope. EKG reveals sinus mechanism heart rate of 77 are as her prime in V1, nonspecific ST upsloping changes in the inferior leads. There is no old for comparison. Chest x-ray is negative for an acute cardiopulmonary process. CT chest reveals minimal scattered emphysematous changes, a 5 mm focal irregular density posterior right midlung could represent some scarring 6 month follow-up recommended, small hiatal hernia, mild superior end plate deformity of T8. Laboratory data reviewed, WBC 10.8, hemoglobin 13.2, d-dimer 0.39, sodium 145, potassium 4.1, creatinine 0.78, lactic acid on admission 2.2 down to 1.6, magnesium 1.9, cardiac enzymes negative 3, proBNP 58, LDL 121, triglycerides 342. Current daily cardiac medications include atorvastatin 40 mg daily. At the time of my exam: CONSTITUTIONAL: Denies fever. Denies chills. EYES: Denies blurred vision. Denies vision changes. Denies eye pain. EARS, NOSE, MOUTH & THROAT: Denies headache. Denies sore throat. Denies ear pain. CARDIOVASCULAR: Complains of pleuritic chest pain. Complains of shortness of breath. Denies orthopnea. Denies PND. Denies palpitations. RESPIRATORY: Complains of cough. GASTROINTESTINAL: Denies abdominal pain. Denies diarrhea. Denies constipation. Denies nausea. Denies vomiting. MUSCULOSKELETAL: Denies myalgias. INTEGUMENTARY: Denies pruitis. Denies rash. NEUROLOGIC: Denies numbness. Denies tingling. Denies weakness. PSYCHIATRIC: Denies anxiety. Denies depression. ENDOCRINE: Denies fatigue. Denies weight change. Denies polydipsia. Denies polyurina. GENITOURINARY: Denies burning, hematuria or urgency with micturation. HEMATOLOGIC: Denies history of anemia. Denies bleeding. Blood pressure 124/81 heart rate 67 afebrile maintaining oxygen saturation on room air GENERAL: This is a 54-year-old male in no apparent distress at the time of my examination. HEENT: Head is atraumatic, normocephalic. Pupils are equal, round. Sclerae anicteric. Conjunctivae are clear. Mucous membranes of the mouth are moist. Neck is supple. There is no jugular venous distention. No carotid bruit is heard. LUNGS: Coarse scattered rhonchi in the right midlung, faint expiratory wheezes, no rales. No chest wall tenderness is noted on palpation or with deep breathing. HEART: Regular rate and rhythm without murmurs, rubs or gallops. S1 and S2 heard. ABDOMEN: Soft, nontender. Bowel sounds are heard. No organomegaly noted. EXTREMITIES: No evidence of peripheral edema and no calf tenderness noted. VASCULAR: Radial and dorsalis pedis pulses palpated, no evidence of clubbing. NEUROLOGIC: Patient is awake, alert and oriented x3. ASSESSMENT Chest pain, pleuritic. Atypical for angina. Likely related to underlying tracheobronchitis. COPD Chronic nicotine dependence Lung nodule on CT, outpatient follow up per PCP PLAN An acute coronary event has been ruled out. Pain is pleuritic and related to underlying respiratory illness. Non-specific changes on EKG, will obtain echo to assess cardiac structure and function. Recommend pulmonary evaluation. Check pro-calcitonin level. Increase atorvastatin for uncontrolled dyslipidemia. Ongoing medical management. We will follow as needed, thank you kindly for this consultation. Nurse Practitioner note has been reviewed, I agree with a documented findings and plan of care. Patient was seen and examined. Past Medical History Past Medical History: Asthma, COPD Additional Past Medical History / Comment(s): back pain, heredity degenerative disc disorder History of Any Multi-Drug Resistant Organisms: None Reported Past Surgical History: Hernia Repair, Orthopedic Surgery Past Anesthesia/Blood Transfusion Reactions: No Reported Reaction Past Psychological History: ADD/ADHD, Anxiety, Bipolar Smoking Status: Current every day smoker Past Alcohol Use History: None Reported Past Drug Use History: None Reported - Past Family History Mother Family Medical History: Coronary Artery Disease (CAD), Myocardial Infarction ([place]), Pneumonia Father Family Medical History: Pneumonia Medications and Allergies Home Medications Medication Instructions Recorded Confirmed Type Atorvastatin [Lipitor] 40 mg PO DAILY 09/01/18 03/15/19 History HYDROcodone/APAP 10-325MG [[place] 1 tab PO QID 09/01/18 03/15/19 History 10-325] QUEtiapine [SEROquel] 50 mg PO BID 09/01/18 03/15/19 History Glycopyrrolate/Formoterol Fum 2 puff INHALATION RT-BID 03/15/19 03/15/19 History [Bevespi Aerosphere Inhaler] Allergies Allergy/AdvReac Type Severity Reaction Status Date / Time gabapentin [From Neurontin] Allergy Unknown Verified 03/15/19 18:25 Physical Exam Vitals: Vital Signs Temp Pulse Pulse Resp BP BP BP 03/16/19 07:10 97.9 F 67 18 124/81 03/16/19 04:00 98.0 F 63 18 124/80 03/15/19 22:55 64 18 03/15/19 22:31 98.4 F 64 18 136/88 03/15/19 20:55 75 20 118/87 03/15/19 18:02 109 H 20 117/85 03/15/19 17:55 91 18 135/83 03/15/19 17:52 22 03/15/19 17:26 97.7 F 96 20 137/86 Pulse Ox 03/16/19 07:10 95 03/16/19 04:00 97 03/15/19 22:55 03/15/19 22:31 98 03/15/19 20:55 97 03/15/19 18:02 98 03/15/19 17:55 99 03/15/19 17:52 03/15/19 17:26 99 Intake and Output 03/15/19 03/16/19 03/16/19 22:59 06:59 14:59 Intake Total 522 Balance 522 Intake: Amount of Fluid Infused ( 300 ml) Oral 222 Other: # Voids 1 Weight 86.183 kg Results 03/15/19 17:50 03/15/19 17:50 Cardiac Enzymes 03/15/19 03/15/19 03/15/19 Range/Units 17:50 17:50 23:40 AST 31 (17-59) U/L Troponin I <0.012 <0.012 (0.000-0.034) ng/mL 03/16/19 Range/Units 05:42 AST (17-59) U/L Troponin I <0.012 (0.000-0.034) ng/mL Coagulation 03/15/19 Range/Units 17:50 PT 9.9 (9.0-12.0) sec APTT 22.4 (22.0-30.0) sec Lipids 03/16/19 Range/Units 05:42 Triglycerides 342 H (<150) mg/dL Cholesterol 226 H (<200) mg/dL HDL Cholesterol 37 L (40-60) mg/dL CBC 03/15/19 Range/Units 17:50 WBC 10.8 H (3.8-10.6) k/uL RBC 4.28 L (4.30-5.90) m/uL Hgb 13.2 (13.0-17.5) gm/dL Hct 41.5 (39.0-53.0) % Plt Count 275 (150-450) k/uL Comprehensive Metabolic Panel 03/15/19 Range/Units 17:50 Sodium 145 (137-145) mmol/L Potassium 4.1 (3.5-5.1) mmol/L Chloride 111 H (98-107) mmol/L Carbon Dioxide 25 (22-30) mmol/L BUN 14 (9-20) mg/dL Creatinine 0.78 (0.66-1.25) mg/dL Glucose 101 H (74-99) mg/dL Calcium 9.8 (8.4-10.2) mg/dL AST 31 (17-59) U/L ALT 24 (21-72) U/L Alkaline Phosphatase 88 (38-126) U/L Total Protein 7.8 (6.3-8.2) g/dL Albumin 4.3 (3.5-5.0) g/dL Current Medications Generic Name Dose Route Start Last Admin Trade Name Freq PRN Reason Stop Dose Admin Hydrocodone Bitart/Acetaminophen 1 each 03/15/19 23:00 03/15/19 23:15 [place] 10 PO 1 each QID [facility] Administration Aspirin 325 mg 03/16/19 09:00 Aspirin PO DAILY [facility] Atorvastatin Calcium 40 mg 03/16/19 09:00 Lipitor PO DAILY [facility] Formoterol Fumarate 20 mcg 03/16/19 08:00 Perforomist INHALATION RT-BID [facility] Ipratropium [place] 0.5 mg 03/16/19 08:00 Atrovent Nebulized INHALATION RT-QID [facility] Nitroglycerin 0.4 mg 03/15/19 20:52 Nitrostat SUBLINGUAL Q5M PRN Chest Pain Nitroglycerin 1 inch 03/16/19 00:00 03/16/19 05:01 Nitro-Bid Oint TOPICAL Not Given Q6HR [facility] Quetiapine Fumarate 50 mg 03/15/19 23:00 03/15/19 23:15 Seroquel PO 50 mg BID PATO Administration Sodium Chloride 10 ml 03/15/19 21:00 03/15/19 22:24 Saline Flush IV 10 ml BID PATO Administration Intake and Output 03/15/19 03/16/19 03/16/19 22:59 06:59 14:59 Intake Total 522 Balance 522 Intake: Amount of Fluid Infused ( 300 ml) Oral 222 Other: # Voids 1 Weight 86.183 kg 03/15/19 17:50 03/15/19 17:50
[2019-03-16] MEDS ORDERED: AZITHROMYCIN 500 MG TAB PO STA (11:21)
[2019-03-16 11:48] VITALS: BP 136/80
[2019-03-16] MEDS: QUEtiapine 100 MG TAB PO SCH (11:50)
[2019-03-16] MEDS: HYDROcodone/APAP 10-325MG 1 EACH TAB PO SCH ×2 (11:51→12:58)
--- NOTE | 2019-03-16 13:00 | ECHOF ---
Referral Reason:cp, sob MEASUREMENTS -------- HEIGHT: 175.3 cm WEIGHT: 86.2 kg BP: 124/81 RVIDd: 2.6 cm (< 3.3) IVSd: 1.2 cm (0.6 - 1.1) LVIDd: 4.4 cm (3.9 - 5.3) LVPWd: 1.2 cm (0.6 - 1.1) IVSs: 1.8 cm LVIDs: 2.5 cm LVPWs: 1.6 cm LA Diam: 3.6 cm (2.7 - 3.8) LAESV Index (A-L): 22.96 ml/m Ao Diam: 3.6 cm (2.0 - 3.7) AV Cusp: 2.1 cm (1.5 - 2.6) MV EXCURSION: 17.007 mm (> 18.000) MV EF SLOPE: 111 mm/s (70 - 150) EPSS: 0.6 cm MV E Mario: 0.88 m/s MV DecT: 239 ms MV A Mario: 0.68 m/s MV E/A Ratio: 1.30 TAPSE: 16.59 mm FINDINGS -------- Sinus rhythm. This was a technically good study. The left ventricular size is normal. There is borderline concentric left ventricular hypertrophy. Overall left ventricular systolic function is normal with, an EF between 60 - 65 %. The diastolic filling pattern is normal for the age of the patient 7.90. The right ventricle is normal in size. Normal LA size by volume 22+/-6 ml/m2. The right atrium is normal in size. Aneurysmal Interatrial septum. The aortic valve is trileaflet and appears structurally normal. The mitral valve leaflets are mildly thickened. The tricuspid valve appears structurally normal. There is no pulmonic regurgitation present. The aortic root size is normal. Normal inferior vena cava with normal inspiratory collapse consistent with estimated right atrial pre ssure of 5 mmHg. There is no pericardial effusion. CONCLUSIONS -------- 1. Sinus rhythm. 2. This was a technically good study. 3. The left ventricular size is normal. 4. There is borderline concentric left ventricular hypertrophy. 5. Overall left ventricular systolic function is normal with, an EF between 60 - 65 %. 6. The diastolic filling pattern is normal for the age of the patient 7.90 7. The right ventricle is normal in size. 8. Normal LA size by volume 22+/-6 ml/m2. 9. The right atrium is normal in size. 10. Aneurysmal Interatrial septum. 11. The aortic valve is trileaflet and appears structurally normal. 12. The mitral valve leaflets are mildly thickened. 13. The tricuspid valve appears structurally normal. 14. There is no pulmonic regurgitation present. 15. The aortic root size is normal. 16. Normal inferior vena cava with normal inspiratory collapse consistent with estimated right atrial pressure of 5 mmHg. 17. There is no pericardial effusion. INVENTORY CONTROL ANALYST: Martha Blum RDCS
[2019-03-16 15:44] VITALS: PULSE 72
--- NOTE | 2019-03-16 16:01 | P.DS ---
Providers Date of admission: 03/15/19 20:52 Expected date of discharge: 03/16/19 Attending physician: Zeus Awad Consults: 03/15/19 20:52 Consult Physician Urgent Consulting Provider: Kosta Casillas Consult Reason/Comments: cp Do you want consulting provider notified?: Yes Primary care physician: Zeus Awad [facility] Course: 54 year old male admitted to observation unit complained of chest pressure and cough with sputum 1 week.Was evaluated by cardiology and cleared for discharge 2-d echo negative assessment chest pain atypical troponin negative X3 purulent bronchitis hx asthma and COPD bipolar degenerative disc disease opoid dependent hyperlipidemia plan follow up with cardiology and family physician Dr Soledad Awad Plan - Discharge Summary Discharge Rx Participant: No New Discharge Prescriptions: New Atorvastatin [Lipitor] 80 mg PO HS #30 tab Azithromycin [Zithromax Z-pack] 0 mg PO DIRECTED #6 tab Continue QUEtiapine [SEROquel] 50 mg PO BID HYDROcodone/APAP 10-325MG [[place] 10-325] 1 tab PO QID Glycopyrrolate/Formoterol Fum [Bevespi Aerosphere Inhaler] 2 puff INHALATION RT-BID Discontinued Atorvastatin [Lipitor] 40 mg PO DAILY Discharge Medication List HYDROcodone/APAP 10-325MG [[place] 10-325] 1 tab PO QID 09/01/18 [History] QUEtiapine [SEROquel] 50 mg PO BID 09/01/18 [History] Glycopyrrolate/Formoterol Fum [Bevespi Aerosphere Inhaler] 2 puff INHALATION RT- BID 03/15/19 [History] Atorvastatin [Lipitor] 80 mg PO HS #30 tab 03/16/19 [Rx] Azithromycin [Zithromax Z-pack] 0 mg PO DIRECTED #6 tab 03/16/19 [Rx] Follow up Appointment(s)/Referral(s): Zeus Awad MD [Primary Care Provider] - 1-2 days Tameka Gordillo MD [STAFF PHYSICIAN] - 03/30/19 4:15 pm (pt to see cardiology associates for possible outpatient stress test.)
[2019-03-16] MEDS ORDERED: ATORVASTATIN 80 MG TAB PO SCH (21:00)
== END 2019-03-16 16:50 | disposition home or self-care (01) ==
LOC: EC 17:23 → 1SOBS 20:52
PROVIDERS: ADMIT Family Medicine; ATTEND Family Medicine
DX: R07.89 Other chest pain (principal); J44.9 Chronic obstructive pulmonary disease, unspecified; R07.81 Pleurodynia; F11.20 Opioid dependence, uncomplicated; F17.210 Nicotine dependence, cigarettes, uncomplicated; E78.5 Hyperlipidemia, unspecified; R91.1 Solitary pulmonary nodule; F90.9 Attention-deficit hyperactivity disorder, unspecified type; F31.9 Bipolar disorder, unspecified; F41.9 Anxiety disorder, unspecified; M54.9 Dorsalgia, unspecified; K44.9 Diaphragmatic hernia without obstruction or gangrene; E66.9 Obesity, unspecified; Z68.28 Body mass index [BMI] 28.0-28.9, adult; Z79.899 Other long term (current) drug therapy; Z88.8 Allergy status to other drugs, medicaments and biological substances; Z87.01 Personal history of pneumonia (recurrent); Z82.49 Family history of ischemic heart disease and other diseases of the circulatory system; Z82.5 Family history of asthma and other chronic lower respiratory diseases; Z84.89 Family history of other specified conditions
CPT/HCPCS: 93005 ×2; 96361; 96374; 99285; 36415; 94640 ×2; 93306; 85379; 83880; 80061; 80053; 83605; 83735; 84484 ×2; 85025; 85610; 85730; 87040; 84145; 71046; 71250; G0378 ×2; J2270

== ENCOUNTER 2019-05-01 09:07 | Day surgery (SDC) | payer BC ==
[2019-04-27 12:17] VITALS: BMI 29.2
[~2019-05-01 09:07] MED LIST: LACTATED RINGERS 1,000 ML IV SCH
[2019-05-01 09:26] VITALS: TEMP 97.8
[2019-05-01] MEDS ORDERED: LACTATED RINGERS 1,000 ML IV ONE (09:33)
[2019-05-01] MEDS ORDERED: LIDOCAINE 1% 20 ML VIAL (10MG/ML) FOR IV START INTRADERMA ONE (09:34)
[2019-05-01] MEDS ORDERED: LIDOCAINE 1% INJ 10MG/ML (20 ML MDV) ONE (10:04)
[2019-05-01] MEDS ORDERED: PROPOFOL 10 MG/ML 20 ML VIAL IV ONE (10:04)
--- NOTE | 2019-05-01 10:23 | P.GSHP ---
History of Present Illness H&P Date: 05/01/19 Chief Complaint: Screening colonoscopy This a 54-year-old male who presents today for screening colonoscopy. Patient denies any significant GI complaints. Past Medical History Past Medical History: Asthma, COPD, GERD/Reflux, Sleep Apnea/CPAP/BIPAP Additional Past Medical History / Comment(s): back pain, heredity degenerative disc disorder History of Any Multi-Drug Resistant Organisms: None Reported Past Surgical History: Hernia Repair, Orthopedic Surgery Additional Past Surgical History / Comment(s): ANKLE SURGERY WITH PINS , PLATES AND RIGHT TOE SURGERY (HARDWARE REMOVED), UMBILICAL HERNIA. Past Anesthesia/Blood Transfusion Reactions: No Reported Reaction Past Psychological History: ADD/ADHD, Anxiety, Bipolar Smoking Status: Current every day smoker Past Alcohol Use History: None Reported Additional Past Alcohol Use History / Comment(s): SMOKED 1 PPD, STARTED SMOKING AT 14 YEARS OLD Past Drug Use History: None Reported - Past Family History Mother Family Medical History: Coronary Artery Disease (CAD), Myocardial Infarction ([place]), Pneumonia Father Family Medical History: Cancer, Pneumonia Additional Family Medical History / Comment(s): SKIN CANCER Brother(s) Family Medical History: Cancer Additional Family Medical History / Comment(s): TESTICULAR CANCER Medications and Allergies Home Medications Medication Instructions Recorded Confirmed Type HYDROcodone/APAP 10-325MG [[place] 1 tab PO QID PRN 09/01/18 04/27/19 History 10-325] Glycopyrrolate/Formoterol Fum 2 puff INHALATION RT-BID 03/15/19 04/27/19 History [Bevespi Aerosphere Inhaler] Atorvastatin [Lipitor] 80 mg PO HS #30 tab 03/16/19 04/27/19 Rx Zaleplon [[place]] 5 mg PO HS PRN 04/27/19 04/27/19 History Allergies Allergy/AdvReac Type Severity Reaction Status Date / Time gabapentin [From Neurontin] Allergy TUNNEL Verified 04/27/19 11:56 [facility] - Exam Vital Signs Temp Pulse Resp BP Pulse Ox 97.8 F 74 18 118/66 96 05/01/19 09:25 05/01/19 09:25 05/01/19 09:25 05/01/19 09:25 05/01/19 09:25 - General well developed, well nourished, no distress - Eyes PERRL - ENT normal pinna - Neck no masses - Respiratory normal expansion - Cardiovascular Rhythm: regular - Abdomen Abdomen: soft, non tender Assessment and Plan Assessment: We'll perform screening colonoscopy.
--- NOTE | 2019-05-01 10:36 | P.OP ---
Date of Procedure: 05/01/19 Preoperative Diagnosis: Screening colonoscopy Postoperative Diagnosis: Diverticulosis Procedure(s) Performed: Colonoscopy Anesthesia: MAC Surgeon: Quincy Dai Pathology: none sent Condition: stable Disposition: PACU Description of Procedure: Patient's placed on the endoscopy table in the lateral position. He received IV sedation. Digital rectal exam was performed which revealed no abnormalities. Flexible colonoscope was then placed patient anus passed throughout the entire colon. The ileocecal valve was visualized. The cecum, ascending and transverse colon appeared normal. In the descending and sigmoid was mild diverticular changes. Scope was then brought back the rectum and this appeared normal. Scope.
[2019-05-01 11:29] VITALS: BP 117/72; PULSE 65; RESP 18
== END 2019-05-01 11:10 | disposition home or self-care (01) ==
LOC: ORWHC2ENDO 09:07
PROVIDERS: ATTEND Surgery
DX: Z12.11 Encounter for screening for malignant neoplasm of colon (principal); K57.30 Diverticulosis of large intestine without perforation or abscess without bleeding; J44.9 Chronic obstructive pulmonary disease, unspecified; K21.9 Gastro-esophageal reflux disease without esophagitis; I10 Essential (primary) hypertension; F41.9 Anxiety disorder, unspecified; F31.9 Bipolar disorder, unspecified; F90.9 Attention-deficit hyperactivity disorder, unspecified type; F17.210 Nicotine dependence, cigarettes, uncomplicated; Z98.890 Other specified postprocedural states; Z88.8 Allergy status to other drugs, medicaments and biological substances; Z82.49 Family history of ischemic heart disease and other diseases of the circulatory system; Z83.6 Family history of other diseases of the respiratory system; Z80.8 Family history of malignant neoplasm of other organs or systems; Z80.43 Family history of malignant neoplasm of testis
CPT/HCPCS: J2001; J2704; G0121

== ENCOUNTER → 2023-01-07 | Outpatient (CLI) | payer BC ==
--- NOTE | 2023-01-07 12:08 | FL ---
Exam Date: 01/07/2023 11:18 AM. Modified barium swallow for dysphagia. Consistencies administered: Various consistency of barium. Fluoro time: 42 No images were sent to PACS. Please see speech pathology report. DAP: Not reported Gycm2
--- NOTE | 2023-01-07 14:49 | XR ---
EXAMINATION TYPE: XR cervical spine comp DATE OF EXAM: 01/07/2023 COMPARISON: None HISTORY: 57-year-old male M99.01 SEGMENTAL AND SOMATIC DYSFUNCTION M54.2 TECHNIQUE: 3 views FINDINGS: No predental space widening or prevertebral soft tissue swelling. Normal odontoid view. Disc interspa ale are maintained. Alignment is preserved. IMPRESSION: No prevertebral soft tissue swelling or malalignment.
== END | disposition home or self-care (01) ==
LOC: RADFLMAIN 10:31
PROVIDERS: ATTEND Family Medicine
DX: M99.01 Segmental and somatic dysfunction of cervical region (principal); M54.2 Cervicalgia
CPT/HCPCS: 72050; 74230

== ENCOUNTER 2023-09-07 10:28 | Day surgery (SDC) | payer BC, OTHER ==
[2023-09-07] MEDS: LACTATED RINGERS 1,000 ML IV SCH (11:17)
[2023-09-07] MEDS ORDERED: PROPOFOL 10 MG/ML 20 ML VIAL IV ONE (11:48)
--- NOTE | 2023-09-07 11:50 | P.GSHP ---
History of Present Illness H&P Date: 09/07/23 Chief Complaint: Dysphagia 58-year-old male here for upper endoscopy. Patient with complaints of dysphagia and odynophagia. Points to the upper esophagus. No antiacids. Underwent swallow eval last January. Patient does not know the results. Past Medical History Past Medical History: Asthma, COPD, GERD/Reflux, Hyperlipidemia, Osteoarthritis (OA), Sleep Apnea/CPAP/BIPAP Additional Past Medical History / Comment(s): back pain, heredity degenerative disc disorder, difficulty swallowing with some choking. does not have cpap. History of Any Multi-Drug Resistant Organisms: None Reported Past Surgical History: Hernia Repair, Orthopedic Surgery Additional Past Surgical History / Comment(s): ANKLE SURGERY WITH PINS , PLATES AND RIGHT TOE SURGERY (HARDWARE REMOVED), UMBILICAL HERNIA. colonoscopy Past Anesthesia/Blood Transfusion Reactions: No Reported Reaction Smoking Status: Current every day smoker - Past Family History Mother Family Medical History: Coronary Artery Disease (CAD), Myocardial Infarction ([place]), Pneumonia Father Family Medical History: Cancer, Pneumonia Additional Family Medical History / Comment(s): SKIN CANCER Brother(s) Family Medical History: Cancer Additional Family Medical History / Comment(s): TESTICULAR CANCER Medications and Allergies Home Medications Medication Instructions Recorded Confirmed Type HYDROcodone/APAP 10-325MG [[place] 1 tab PO QID PRN 09/01/18 09/07/23 History 10-325] Glycopyrrolate/Formoterol Fum 2 puff INHALATION RT-BID 03/15/19 09/07/23 History [Bevespi Aerosphere Inhaler] Atorvastatin [Lipitor] 80 mg PO HS #30 tab 03/16/19 09/07/23 Rx ALPRAZolam [Xanax] 0.5 mg PO DIRECTED PRN 09/03/23 09/07/23 History Albuterol Sulfate [Ventolin HFA] 2 puff INHALATION DIRECTED PRN 09/03/23 09/07/23 History Amitriptyline HCl 50 mg PO HS 09/03/23 09/07/23 History Varenicline [Chantix Continuing 1 mg PO BID 09/03/23 09/07/23 History Pack] Zolpidem [Ambien] 10 mg PO HS PRN 09/03/23 09/07/23 History Allergies Allergy/AdvReac Type Severity Reaction Status Date / Time gabapentin [From Neurontin] Allergy TUNNEL Verified 09/07/23 11:15 [facility] - Exam Vital Signs Temp Pulse Resp BP Pulse Ox 98 F 67 16 135/61 97 09/07/23 11:37 09/07/23 11:37 09/07/23 11:37 09/07/23 11:37 09/07/23 11:37 Physical exam: General: Well-developed, well-nourished HEENT: Normocephalic, sclerae nonicteric Abdomen: Nontender, nondistended Extremities: No edema Neuro: Alert and oriented Assessment and Plan (1) Dysphagia Narrative/Plan: Will proceed with upper endoscopy with possible dilation. Current Visit: Yes Status: Acute Code(s): R13.10 - DYSPHAGIA, UNSPECIFIED SNOMED Code(s): 66684320
--- NOTE | 2023-09-07 12:05 | P.PCN ---
Date of Procedure: 09/07/23 Procedure(s) Performed: Preoperative Dx: GERD, dysphagia Postoperative Dx: Mild duodenitis, mild gastritis, small hiatal hernia Procedure: EGD with Bx Anesthesia: Sedation Endoscopist: Dr. Escobar Specimens: Duodenum, antrum Endoscopic Procedure: The patient was on the endoscopy table in the left decubitus position. The Olympus gastroscope was inserted into the oropharynx and passed under direct visualization to the region of the third portion of the duodenum. From that point the scope was slowly withdrawn inspecting all surfaces carefully. There was mild duodenitis present. Biopsies of the duodenum took place. The pylorus was widely patent. The stomach was carefully inspected. There was mild gastritis present. A biopsy of the antrum took place to rule out H. pylori. Retroflexion revealed a small to medium size hiatal hernia. The GE junction was present 2 to 3 cm above the diaphragmatic hiatus. There was no evidence of stricture or inflammatory changes at the distal esophagus. The remainder the esophagus likewise appeared normal. The patient was then taken to the recovery room in stable condition per anesthesia guidelines. Recommendations: Await biopsy results. Trial of antiacid therapy. Results from modified barium swallow not available to me at this time. If that study is normal and patient symptoms persist or increase consider esophageal manometry to evaluate for dysmotility.
[2023-09-07 12:07] VITALS: TEMP 98
[2023-09-07 12:53] VITALS: BP 115/65; PULSE 62
[2023-09-07 12:54] VITALS: RESP 18
== END 2023-09-07 12:41 | disposition home or self-care (01) ==
LOC: ORWHC2ENDO 10:28
PROVIDERS: ATTEND Surgery
DX: K31.9 Disease of stomach and duodenum, unspecified (principal); K44.9 Diaphragmatic hernia without obstruction or gangrene; K21.9 Gastro-esophageal reflux disease without esophagitis; G47.30 Sleep apnea, unspecified; E78.5 Hyperlipidemia, unspecified; J44.89 Other specified chronic obstructive pulmonary disease; K29.80 Duodenitis without bleeding; M19.90 Unspecified osteoarthritis, unspecified site; F17.200 Nicotine dependence, unspecified, uncomplicated; Z88.8 Allergy status to other drugs, medicaments and biological substances; Z79.899 Other long term (current) drug therapy
CPT/HCPCS: 88305; 43239; J2704

== ENCOUNTER → 2024-07-31 | Outpatient (CLI) | payer BC, OTHER ==
[2024-07-31 09:27] LABS: ALT 23 U/L (4-49); AST 27 U/L (17-59); African American GFR (CKD) >90 (>60 ml/min/1.73 sqM); Albumin 3.5 g/dL (3.5-5.0); Alkaline Phosphatase 82 U/L (38-126); Anion Gap 5 mmol/L; Blood Urea Nitrogen 24 mg/dL (9-20); Calcium 8.5 mg/dL (8.4-10.2); Carbon Dioxide 27 mmol/L (22-30); Chloride 107 mmol/L (98-107); Glucose 156 mg/dL (74-99); Non-African American GFR(CKD) >90 (>60 ml/min/1.73 sqM); Potassium 4.4 mmol/L (3.5-5.1); Sodium 139 mmol/L (137-145); Total Bilirubin 0.4 mg/dL (0.2-1.3); Total Protein 6.3 g/dL (6.3-8.2)
--- NOTE | 2024-08-01 07:55 | BD ---
EXAMINATION TYPE: Axial Bone Density DATE OF EXAM: 07/31/2024 CLINICAL HISTORY: 59 years old Male. ICD-10 CODE: M85.80 DISORDER OF BONE DENSITY , Additional Histo ry: Height: 69 Weight: 202 FRAX RISK QUESTIONS: Alcohol (3 or more units per day): no Family History (Parent hip fracture): no Glucocorticoids (More than 3mos): no (Ex: prednisone, prednisolone, methylprednisolone, dexamethasone, and hydrocortisone). History of Fracture in Adulthood: yes Secondary Osteoporosis: 1. Type 1 Diabetes: no 2. Hyperthyroidism: no 3. Menopause before 45: n/a 4. Malnutrition: no 5. Chronic liver disease: no Rheumatoid Arthritis: yes Current Tobacco Use: yes RISK FACTORS HISTORY OF: Surgery to Spine/Hip(right/left)/Wrist (right/left): no EXAM MEASUREMENTS: Bone mineral densitometry was performed using the [employer] System. Bone mineral density as measured about the Lumbar spine is: ----- L1-L4(G/cm2): 0.889 T Score Values are as follows: ----- L1: -3.1 ----- L2: -3.7 ----- L3: -2.2 ----- L4: -1.2 ----- L1-L4: -2.4 Z Score Values are as follows: ----- L1: -3.5 ----- L2: -4.2 ----- L3: -2.7 ----- L4: -1.7 ----- L1-L4: -2.9 Bone mineral density : baseline Bone mineral density about the R hip (g/cm2): 0.793 Bone mineral density about the L hip (g/cm2): 0.887 T Score values are as follows: -----R Neck: -1.4 -----L Neck: 0.3 -----R Total: -1.7 -----L Total: -1.0 Z Score values are as follows: -----R Neck: -1.2 -----L Neck: 0.6 -----R Total: -2.0 -----L Total: -1.3 Bone mineral density : baseline FRAX%s: The graph provided illustrates a 13.5% chance for a major osteoporotic fx and a 3.2% chance f or the hips probability for fx in 10 years time. IMPRESSION: Osteoporosis (T Score less than -2.5). There is increased fracture risk and therapy is usually indicated based on age. Re-Screen 1-2 years. NOTE: T-SCORE=SD OF THE YOUNG ADULT MEAN. [facility], , 08/01/2024 7:53 AM
== END | disposition home or self-care (01) ==
LOC: RADBDWWP 08:07
PROVIDERS: ATTEND Family Medicine
DX: M85.89 Other specified disorders of bone density and structure, multiple sites (principal)
CPT/HCPCS: 77080; 80053; 83036; 83970

== ENCOUNTER 2024-12-24 00:18 | Emergency (ER) | payer BC, OTHER ==
[2024-12-24] MEDS: ORPHENADRINE 30 MG/ML 2 ML VIAL IM STA (02:03)
[2024-12-24] MEDS: HYDROmorphone 1 MG/ML 1 ML SYRINGE IM STA (02:03)
[2024-12-24] MEDS: methylPREDNISolone SOD SUCCI 125 MG/2 ML VIAL IM ONE (02:03)
[2024-12-24] MEDS: LIDOCAINE 4% PATCH TOPICAL ONE (02:03)
--- NOTE | 2024-12-24 02:29 | ED ---
Extremity Problem HPI - General Chief complaint: Extremity Problem,Nontraumatic Stated complaint: Right hip pain Time Seen by Provider: 12/24/24 00:35 Source: patient Mode of arrival: wheelchair Limitations: no limitations - History of Present Illness Initial comments: 59 year old presents to the emergency department with right sided back pain. States that the pain radiates into his right hip. He has no injury.59-year-old male it has been going on for the past week but is worse within the past 2 days. States that he came in today because he could not sleep. The pain radiates to the lateral aspect of the right leg. Denies weakness or paralysis. No fevers. No history of intravenous drug use. No history of replacement. Patient denies history of cancer. No saddle anesthesia. No bowel or bladder incontinence. Denies any black or bloody stools. No diarrhea or constipation. No dysuria, hematuria or difficulty voiding. Pain is reproducible upon movement. No other alleviating, precipitating modifying factors - Related Data Home Medications Medication Instructions Recorded Confirmed HYDROcodone/APAP 10-325MG [Blair 1 tab PO QID PRN 09/01/18 09/07/23 10-325] Glycopyrrolate/Formoterol Fum 2 puff INHALATION RT-BID 03/15/19 09/07/23 [Bevespi Aerosphere Inhaler] ALPRAZolam [Xanax] 0.5 mg PO DIRECTED PRN 09/03/23 09/07/23 Albuterol Sulfate [Ventolin HFA] 2 puff INHALATION DIRECTED PRN 09/03/23 09/07/23 Amitriptyline HCl 50 mg PO HS 09/03/23 09/07/23 Varenicline [Chantix Continuing 1 mg PO BID 09/03/23 09/07/23 Pack] Zolpidem [Ambien] 10 mg PO HS PRN 09/03/23 09/07/23 Previous Rx's Medication Instructions Recorded Atorvastatin [Lipitor] 80 mg PO HS #30 tab 03/16/19 Omeprazole [PriLOSEC] 20 mg PO AC-BRKFST #90 cap 09/07/23 Cyclobenzaprine [Flexeril] 10 mg PO TID PRN #30 tab 12/24/24 Lidocaine 5% Patch [Lidoderm 5% 1 patch TOPICAL DAILY #25 patch 12/24/24 Patch] predniSONE [Deltasone] 20 mg PO BID #10 tab 12/24/24 Allergies Allergy/AdvReac Type Severity Reaction Status Date / Time gabapentin [From Neurontin] Allergy TUNNEL Verified 12/24/24 00:30 VISION Review of Systems ROS Statement: Those systems with pertinent positive or pertinent negative responses have been documented in the HPI. ROS Other: All systems not noted in ROS Statement are negative. Past Medical History Past Medical History: Asthma, COPD, GERD/Reflux, Hyperlipidemia, Osteoarthritis (OA), Sleep Apnea/CPAP/BIPAP Additional Past Medical History / Comment(s): back pain, heredity degenerative disc disorder, difficulty swallowing with some choking. does not have cpap. History of Any Multi-Drug Resistant Organisms: None Reported Past Surgical History: Hernia Repair, Orthopedic Surgery Additional Past Surgical History / Comment(s): ANKLE SURGERY WITH PINS , PLATES AND RIGHT TOE SURGERY (HARDWARE REMOVED), UMBILICAL HERNIA. colonoscopy Past Anesthesia/Blood Transfusion Reactions: No Reported Reaction Past Psychological History: ADD/ADHD, Anxiety, Bipolar Smoking Status: Current every day smoker Past Alcohol Use History: None Reported Past Drug Use History: None Reported - Past Family History Mother Family Medical History: Coronary Artery Disease (CAD), Myocardial Infarction ([place]), Pneumonia Father Family Medical History: Cancer, Pneumonia Additional Family Medical History / Comment(s): SKIN CANCER Brother(s) Family Medical History: Cancer Additional Family Medical History / Comment(s): TESTICULAR CANCER General Exam Limitations: no limitations General appearance: alert, in no apparent distress Head exam: Present: atraumatic, normocephalic, normal inspection Eye exam: Present: normal appearance, PERRL, EOMI. Absent: scleral icterus, conjunctival injection, periorbital swelling ENT exam: Present: normal exam, mucous membranes moist Neck exam: Present: normal inspection. Absent: tenderness, meningismus, lymphadenopathy Respiratory exam: Present: normal lung sounds bilaterally. Absent: respiratory distress, wheezes, rales, rhonchi, stridor Cardiovascular Exam: Present: regular rate, normal rhythm, normal heart sounds. Absent: systolic murmur, diastolic murmur, rubs, gallop, clicks GI/Abdominal exam: Present: soft, normal bowel sounds. Absent: distended, tenderness, guarding, rebound, rigid Extremities exam: Present: normal inspection, full ROM, normal capillary refill. Absent: tenderness, pedal edema, joint swelling, calf tenderness Back exam: Present: other (Tenderness to palpation of the right SI joint) Neurological exam: Present: alert, oriented X3, CN II-XII intact Psychiatric exam: Present: normal affect, normal mood Skin exam: Present: warm, dry, intact, normal color. Absent: rash Course Vital Signs 12/24/24 12/24/24 00:30 02:46 Temperature 98.2 F 98.4 F Pulse Rate 86 74 Respiratory 17 16 Rate Blood Pressure 120/79 117/91 O2 Sat by Pulse 98 99 Oximetry Medical Decision Making - Medical Decision Making Was pt. sent in by a medical professional or institution (, PA, COACH MECHANIC, urgent care, hospital, or fdc...) When possible be specific @ -No Did you speak to anyone other than the patient for history (EMS, parent, family, police, friend...)? What history was obtained from this source @ -No Did you review nursing and triage notes (agree or disagree)? Why? @ -I reviewed and agree with nursing and triage notes Were old charts reviewed (outside hosp., previous admission, EMS record, old EKG, old radiological studies, urgent care reports/EKG's, fdc records)? Report findings @ -No old charts were reviewed Differential Diagnosis (chest pain, altered mental status, abdominal pain women, abdominal pain men, vaginal bleeding, weakness, fever, dyspnea, syncope, headache, dizziness, GI bleed, back pain, seizure, CVA, palpatations, mental health, musculoskeletal)? @ -Differential Back Pain: Strain, zoster, cauda equina syndrome, epidural abscess, vertebral osteomyelitis, discitis, fracture, subluxation, disc herniation, DJD, spinal stenosis, dissection, AAA, pancreatitis, peptic ulcer disease, pyelonephritis, kidney stone, this is not meant to be an all-inclusive list. EKG interpreted by me (3pts min.). @ -Not done X-rays interpreted by me (1pt min.). @ -None done CT interpreted by me (1pt min.). @ -None done U/S interpreted by me (1pt. min.). @ -None done What testing was considered but not performed or refused? (CT, X-rays, U/S, labs)? Why? @ -X-ray or CAT scan however patient has no trauma or red flag symptoms What meds were considered but not given or refused? Why? @ -None Did you discuss the management of the patient with other professionals (professionals i.e. , PA, COACH MECHANIC, lab, RT, psych nurse, social worker school, senior quality technician, teacher, contract officer, complex case manager)? Give summary @ -No Was smoking cessation discussed for >3mins.? @ -No Was critical care preformed (if so, how long)? @ -No Were there social determinants of health that impacted care today? How? (Homelessness, low income, unemployed, alcoholism, drug addiction, transportation, low edu. Level, literacy, decrease access to med. care, snf, rehab)? @ -No Was there de-escalation of care discussed even if they declined (Discuss DNR or withdrawal of care, Hospice)? DNR status @ -No What co-morbidities impacted this encounter? (DM, HTN, Smoking, COPD, CAD, Cancer, CVA, ARF, Chemo, Hep., AIDS, mental health diagnosis, sleep apnea, morbid obesity)? @ -None Was patient admitted / discharged? Hospital course, mention meds given and route, prescriptions, significant lab abnormalities, going to OR and other pertinent info. @ -Upon arrival patient seen and evaluated in bed 2. Thorough history and physical exam was performed. Patient does have reproducible back pain. He is given a dose of IM pain medications, lidocaine patch, Solu-Medrol and Norflex. Patient does have improvement in his symptoms and he is able to ambulate. He wa nts to go home. Patient will be discharged home. He already takes Blair at home for pain control. I will provide him with a prescription for muscle relaxer however informed him that his pain medications and muscle relaxers must be spaced out by 2 to 3 hours. He would also be placed on a steroid pack and lidocaine patches. Instructed further imaging to include an MRI. Return for any new or worsening symptoms Undiagnosed new problem with uncertain prognosis? @ -No Drug Therapy requiring intensive monitoring for toxicity (Heparin, Nitro, Insulin, Cardizem)? @ -No Were any procedures done? @ -No Diagnosis/symptom? @ -Acute right sided back pain, acute sciatica Acute, or Chronic, or Acute on Chronic? @ -Acute Uncomplicated (without systemic symptoms) or Complicated (systemic symptoms)? @ -complicated Side effects of treatment? @ -No Exacerbation, Progression, or Severe Exacerbation? @ -No Poses a threat to life or bodily function? How? (Chest pain, [place], [place], pneumonia, PE, COPD, DKA, ARF, appy, cholecystitis, CVA, Diverticulitis, Homicidal, Suicidal, threat to staff... and all critical care pts) @ -No Disposition Clinical Impression: Sciatica Disposition: HOME SELF-CARE Condition: Stable Instructions (If sedation given, give patient instructions): Sciatica (ED) Additional Instructions: Please separate your pain medication by the muscle relaxer by at least 2 hours. Follow-up with your doctor. May need an MRI if your pain persist. Return for any new or worsening symptoms Prescriptions: predniSONE [Deltasone] 20 mg PO BID #10 tab Cyclobenzaprine [Flexeril] 10 mg PO TID PRN #30 tab PRN Reason: Muscle Spasm Lidocaine 5% Patch [Lidoderm 5% Patch] 1 patch TOPICAL DAILY #25 patch Is patient prescribed a controlled substance at d/c from ED?: No Referrals: Stanley Gilbert MD [Primary Care Provider] - 1-2 days Time of Disposition: 02:28
[2024-12-24 02:47] VITALS: BP 117/91; PULSE 74; RESP 16; TEMP 98.4
== END 2024-12-24 02:46 | disposition home or self-care (01) ==
LOC: EC 00:18
DX: M54.31 Sciatica, right side (principal); F17.200 Nicotine dependence, unspecified, uncomplicated; Z88.8 Allergy status to other drugs, medicaments and biological substances
CPT/HCPCS: 99283; 96372 ×3; J2360; J1171; J2919